=== PATIENT | female | born 1945 | race African-American/Black ===

== ENCOUNTER 2017-03-06 20:08 | Emergency (ER) | payer OTHER, MEDICAID ==
[~2017-03-06] VITALS: Ht 162.6 cm; Wt 83.9 kg
[2017-03-06] MEDS ORDERED: TETANUS-DIPTH-ACEL PERTUSSIS 0.5ML SYRG IM ONE (22:15)
[2017-03-06 22:38] VITALS: BP 154/84
== END 2017-03-06 23:05 | disposition home or self-care (01) ==
LOC: ER 20:08
DX: S60.362A Insect bite (nonvenomous) of left thumb, initial encounter (principal); I10 Essential (primary) hypertension; E78.5 Hyperlipidemia, unspecified; W57.XXXA Bitten or stung by nonvenomous insect and other nonvenomous arthropods, initial encounter; Z88.0 Allergy status to penicillin; Y93.89 Activity, other specified; Y99.8 Other external cause status; Y92.89 Other specified places as the place of occurrence of the external cause
CPT/HCPCS: 90471; 90715

== ENCOUNTER 2017-09-02 12:18 | Emergency (ER) | payer OTHER, MEDICAID ==
[~2017-09-02] VITALS: Ht 162.6 cm; Wt 84.8 kg
[2017-09-02 12:27] VITALS: BP 125/67
[2017-09-02 13:20] LABS: Basophils # (auto) 0 uL; Basophils % (auto) 0.7 % (0.0-2.0); Eosinophils # (auto) 0.2 uL; Eosinophils % (auto) 2.5 % (0.0-7.0); Hematocrit 40.3 % (36.0-46.0); Hemoglobin 13.5 g/dL (12.2-16.2); Lymphocytes # (auto) 1.1 uL; Lymphocytes % (auto) 16.7 % (10.0-50.0); Mean Corpuscular Hemoglobin 28.2 pg (28.0-32.0); Mean Corpuscular Hgb Conc. 33.4 g/dL (32.0-36.0); Mean Corpuscular Volume 84.3 fL (80.0-100.0); Monocytes # (auto) 0.3 uL; Monocytes % (auto) 4.4 % (0.0-12.0); Neutrophils # (auto) 4.9 uL; Neutrophils % (auto) 75.7 % (37.0-80.0); Platelet Count (auto) 145 10^3/uL (140-450); Red Blood Cells 4.78 10^6/uL (4.0-5.20); Red Cell Distribution Width 14.2 % (11.8-14.3); White Blood Cell 6.4 10^3/uL (4.4-10.8)
[2017-09-02 13:36] LABS: Albumin 3.1 g/dL (3.4-5.0); BUN/Creatinine Ratio 11.8; Calcium 8.2 mg/dL (8.5-10.1)
[2017-09-02 13:37] LABS: Prothrombin Time 10.7 sec (9.27-12.13)
[2017-09-02 13:38] LABS: Bilirubin, Total 0.6 mg/dL (0.2-1.0); Potassium 2.9 mmol/L (3.5-5.1); Total Protein 7.4 g/dL (6.4-8.2)
[2017-09-02] MEDS ORDERED: POTASSIUM EFFERVESENT TAB 25 MEQ PO ONE (13:45)
[2017-09-02] MEDS ORDERED: ASPirin 81 mg TAB PO ONE (14:30)
== END 2017-09-02 16:29 | disposition left against medical advice (07) ==
LOC: ER 12:25
DX: I63.9 Cerebral infarction, unspecified (principal); G45.9 Transient cerebral ischemic attack, unspecified; E87.6 Hypokalemia; E44.1 Mild protein-calorie malnutrition; R73.9 Hyperglycemia, unspecified; E78.5 Hyperlipidemia, unspecified; I10 Essential (primary) hypertension; Z68.32 Body mass index [BMI] 32.0-32.9, adult
CPT/HCPCS: 36415; 70450; 71045; 80053; 85025; 85610; 85730; 93005; 94761